=== PATIENT | female | born 1990 | race Caucasian/White ===

== ENCOUNTER 2018-02-25 17:15 | Emergency (ER) | payer OTHER ==
[~2018-02-25] VITALS: Ht 170.2 cm; Wt 105.0 kg
[~2018-02-25 17:15] MED LIST: CYCL5TAB PO; IBUP800T23 PO; MACR100C PO
[2018-02-25 17:36] VITALS: BP 177/80; PULSE 82; RESP 17; TEMP 98.7; O2SAT 100
[2018-02-25 18:50] LABS: AUTOMATED NEUTROPHIL # 6.6 TH/MM3 (1.8-7.7); BASOPHIL % 0.2 % (0.0-2.0); EOSINOPHIL # 0.1 TH/MM3 (0-0.4); EOSINOPHIL % 1.2 % (0.0-4.0); HEMATOCRIT 38.7 % (35.0-46.0); HEMOGLOBIN 13.7 GM/DL (11.6-15.3); LYMPH % 22.6 % (9.0-44.0); LYMPHOCYTE # 2.2 TH/MM3 (1.0-4.8); MEAN CELL VOLUME 88.9 FL (80.0-100.0); MEAN CORPUSCULAR HEMOGLOBIN 31.4 PG (27.0-34.0); MEAN CORPUSCULAR HGB CONC 35.3 % (32.0-36.0); MEAN PLATELET VOLUME 8.4 FL (7.0-11.0); MONOCYTE # 0.8 TH/MM3 (0-0.9); PLATELET COUNT 225 TH/MM3 (150-450); RED BLOOD COUNT 4.35 MIL/MM3 (4.00-5.30); RED CELL DISTRIBUTION WIDTH 13.1 % (11.6-17.2); WHITE BLOOD COUNT 9.7 TH/MM3 (4.0-11.0)
[2018-02-25 19:08] LABS: ALBUMIN 3.5 GM/DL (3.4-5.0); AST (GOT) 12 U/L (15-37); BICARBONATE 25.2 MEQ/L (21.0-32.0); BLOOD UREA NITROGEN 8 MG/DL (7-18); CALCIUM 9.2 MG/DL (8.5-10.1); CHLORIDE 106 MEQ/L (98-107); CREATININE 0.61 MG/DL (0.50-1.00); GLOMERULAR FILTRATION RATE 119 ML/MIN (>89); GLUCOSE,RANDOM 96 MG/DL (74-106); SODIUM (NA) 139 MEQ/L (136-145)
[2018-02-25 19:09] LABS: ALT (GPT) 31 U/L (10-53)
[2018-02-25 19:11] LABS: ALKALINE PHOSPHATASE 37 U/L (45-117); TOTAL BILIRUBIN ADULT 0.3 MG/DL (0.2-1.0)
[2018-02-25] MEDS ORDERED: SODIUM CHLOR 0.9% 1000 ML INJ 1,000 ML IV SCH (20:07)
--- NOTE | 2018-02-25 20:11 | PD ---
HPI Chief Complaint: Related Problem Time Seen by Provider: 20:02 Travel History International Travel<30 days: No Contact w/Intl Traveler<30days: No Traveled to known affect area: No History of Present Illness HPI This is a 27-year-old who is 10 weeks based on ultrasound 2 weeks ago confirming intrauterine . Her GOLF BALL MARKER is Dr. Gibbons. She presents for evaluation of nausea and vomiting. She reports over the past 2 days she has been vomiting approximately 4 times per day. She feels dehydrated. Reports a crampy suprapubic sensation that started today. Her OB/ MOTOR PATROL OPERATOR prescribed her Zofran yesterday which she has been using and it is helping with the nausea. She called her OBGYN today and was told to come here for IV fluids further evaluation. She denies any vaginal bleeding, vaginal discharge, dysuria, flank pain, fevers or chills. She has no other complaints at this time. PFSH Past Medical History Medical History: Denies Significant Hx Diminished Hearing: No Immunizations Current: Yes Tetanus Vaccination: < 5 Years Influenza Vaccination: Yes ?: : 3 Para: 2 Past Surgical History Surgical History: No Previous Surgery Social History Alcohol Use: No Tobacco Use: No Substance Use: No Allergies-Medications (Allergen,Severity, Reaction): Coded Allergies: No Known Allergies (Verified Allergy, Unknown, 02/25/18) doxycycline (Verified Allergy, Unknown, 02/25/18) Reported Meds & Prescriptions Reported Meds & Active Scripts Active Zofran (Ondansetron HCl) 4 Mg Tab 4 Mg PO Q12HR PRN Diclegis (Doxylamine-Pyridoxine) 10-10 Mg Tab 2 Tab PO HS Keflex (Cephalexin) 500 Mg Cap 500 Mg PO Q12H 7 Days Review of Systems Except as stated in HPI: all other systems reviewed are Neg Physical Exam Narrative GENERAL: Well-developed well-nourished female no acute distress SKIN: Warm and dry. HEAD: Atraumatic. Normocephalic. EYES: Pupils equal and round. No scleral icterus. No injection or drainage. ENT: No nasal bleeding or discharge. Mucous membranes pink and moist. NECK: Trachea midline. No JVD. CARDIOVASCULAR: Regular rate and rhythm. No murmur appreciated. RESPIRATORY: No accessory muscle use. Clear to auscultation. Breath sounds equal bilaterally. GASTROINTESTINAL: Abdomen soft, mild suprapubic tenderness without guarding. There is no left lower quadrant or right lower quadrant tenderness. There is no CVA tenderness. MUSCULOSKELETAL: No obvious deformities. No clubbing. No cyanosis. No edema. NEUROLOGICAL: Awake and alert. No obvious cranial nerve deficits. Motor grossly within normal limits. Normal speech. Data Data Last Documented VS Vital Signs Date Time Temp Pulse Resp B/P (MAP) Pulse Ox O2 Delivery O2 Flow Rate FiO2 02/25/18 17:36 98.7 82 17 177/80 (112) 100 Orders Orders Complete Blood Count With Diff (02/25/18 18:03) Comprehensive Metabolic Panel (02/25/18 18:03) Urinalysis - C+S If Indicated (02/25/18 20:07) Sodium Chlor 0.9% 1000 Ml Inj (Ns 1000 M (02/25/18 20:07) Ondansetron Odt (Zofran Odt) (02/25/18 20:15) Heart Tones (02/25/18 20:07) Ed Discharge Order (02/25/18 21:19) Labs Laboratory Tests Test 02/25/18 18:11 02/25/18 20:20 White Blood Count 9.7 TH/MM3 Red Blood Count 4.35 MIL/MM3 Hemoglobin 13.7 GM/DL Hematocrit 38.7 % Mean Corpuscular Volume 88.9 FL Mean Corpuscular Hemoglobin 31.4 PG Mean Corpuscular Hemoglobin Concent 35.3 % Red Cell Distribution Width 13.1 % Platelet Count 225 TH/MM3 Mean Platelet Volume 8.4 FL Neutrophils (%) (Auto) 68.0 % Lymphocytes (%) (Auto) 22.6 % Monocytes (%) (Auto) 8.0 % Eosinophils (%) (Auto) 1.2 % Basophils (%) (Auto) 0.2 % Neutrophils # (Auto) 6.6 TH/MM3 Lymphocytes # (Auto) 2.2 TH/MM3 Monocytes # (Auto) 0.8 TH/MM3 Eosinophils # (Auto) 0.1 TH/MM3 Basophils # (Auto) 0.0 TH/MM3 CBC Comment DIFF FINAL Differential Comment Blood Urea Nitrogen 8 MG/DL Creatinine 0.61 MG/DL Random Glucose 96 MG/DL Total Protein 7.0 GM/DL Albumin 3.5 GM/DL Calcium Level 9.2 MG/DL Alkaline Phosphatase 37 U/L Aspartate Amino Transf (AST/SGOT) 12 U/L Alanine Aminotransferase (ALT/SGPT) 31 U/L Total Bilirubin 0.3 MG/DL Sodium Level 139 MEQ/L Potassium Level 3.9 MEQ/L Chloride Level 106 MEQ/L Carbon Dioxide Level 25.2 MEQ/L Anion Gap 8 MEQ/L Estimat Glomerular Filtration Rate 119 ML/MIN Urine Color YELLOW Urine Turbidity HAZY Urine pH 6.5 Urine Specific [place] 1.016 Urine Protein TRACE mg/dL Urine Glucose (UA) NEG mg/dL Urine Ketones 80 mg/dL Urine Occult Blood NEG Urine Nitrite NEG Urine Bilirubin NEG Urine Urobilinogen 2.0 MG/DL Urine Leukocyte Esterase LARGE Urine WBC 5 /hpf Urine Squamous Epithelial Cells 32 /hpf Urine Bacteria OCC /hpf Urine Mucus FEW /lpf Microscopic Urinalysis Comment CULT NOT INDICATED MDM Medical Decision Making Medical Screen Exam Complete: Yes Emergency Medical Condition: Yes Medical Record Reviewed: Yes Differential Diagnosis Nausea and vomiting in , hyperemesis, dehydration, electrolyte abnormality, cystitis, miscarriage, ectopic Narrative Course Lab work, urinalysis was obtained. Bedside ultrasound performed by Dr. Cuadra reveals single intrauterine with heart tones 140. Patient was given IV fluids and she feels improved. Lab work is unremarkable. Urinalysis reveals leukocytes and bacteria so the patient will be treated for bacteriuria in with Keflex. She is stable for discharge. Diagnosis Primary Impression: Asymptomatic bacteriuria during Additional Impression: Nausea and vomiting during Additional Instructions: Medication as prescribed. Follow-up with coutierier. Return for any emergent medical conditions. Med/Other Pt SpecificInfo: Prescription(s) given Scripts Ondansetron (Zofran) 4 Mg Tab 4 MG PO Q12HR Y for NAUSEA OR VOMITING, #6 TAB 0 Refills Prov: Tenzin Gross MD 02/25/18 Doxylamine-Pyridoxine (Diclegis) 10-10 Mg Tab 2 TAB PO HS, #20 Prov: Tenzin Gross MD 02/25/18 Cephalexin (Keflex) 500 Mg Cap 500 MG PO Q12H for Infection for 7 Days, #14 CAP 0 Refills Prov: Tenzin Gross MD 02/25/18 Disposition: DISCHARGE HOME Condition: Stable Julio Shah February 25, 2018 20:11
[2018-02-25] MEDS ORDERED: ONDANSETRON ODT 4 MG TAB PO ONE (20:15)
[2018-02-25 20:46] LABS: BACTERIA, URINE OCC /hpf; BILIRUBIN, URINE NEG (NEG); BLOOD, URINE NEG (NEG); GLUCOSE,URINE NEG (NEG); KETONE, URINE 80 mg/dL (NEG); MUCUS URINE FEW /lpf (OCC); NITRITE,URINE NEG (NEG); PH, URINE 6.5 (5.0-8.5); SQUAMOUS EPITHELIAL CELL URINE 32 /hpf (0-5); URINE COLOR YELLOW (YELLW/STRAW); URINE LEUKOCYTE ESTERASE LARGE (NEG)
--- NOTE | 2018-02-25 20:56 | PD ---
Data Data Last Documented VS Vital Signs Date Time Temp Pulse Resp B/P (MAP) Pulse Ox O2 Delivery O2 Flow Rate FiO2 02/25/18 17:36 98.7 82 17 177/80 (112) 100 Orders Orders Complete Blood Count With Diff (02/25/18 18:03) Comprehensive Metabolic Panel (02/25/18 18:03) Urinalysis - C+S If Indicated (02/25/18 20:07) Sodium Chlor 0.9% 1000 Ml Inj (Ns 1000 M (02/25/18 20:07) Ondansetron Odt (Zofran Odt) (02/25/18 20:15) Heart Tones (02/25/18 20:07) Ed Discharge Order (02/25/18 21:19) Labs Laboratory Tests Test 02/25/18 18:11 02/25/18 20:20 White Blood Count 9.7 TH/MM3 Red Blood Count 4.35 MIL/MM3 Hemoglobin 13.7 GM/DL Hematocrit 38.7 % Mean Corpuscular Volume 88.9 FL Mean Corpuscular Hemoglobin 31.4 PG Mean Corpuscular Hemoglobin Concent 35.3 % Red Cell Distribution Width 13.1 % Platelet Count 225 TH/MM3 Mean Platelet Volume 8.4 FL Neutrophils (%) (Auto) 68.0 % Lymphocytes (%) (Auto) 22.6 % Monocytes (%) (Auto) 8.0 % Eosinophils (%) (Auto) 1.2 % Basophils (%) (Auto) 0.2 % Neutrophils # (Auto) 6.6 TH/MM3 Lymphocytes # (Auto) 2.2 TH/MM3 Monocytes # (Auto) 0.8 TH/MM3 Eosinophils # (Auto) 0.1 TH/MM3 Basophils # (Auto) 0.0 TH/MM3 CBC Comment DIFF FINAL Differential Comment Blood Urea Nitrogen 8 MG/DL Creatinine 0.61 MG/DL Random Glucose 96 MG/DL Total Protein 7.0 GM/DL Albumin 3.5 GM/DL Calcium Level 9.2 MG/DL Alkaline Phosphatase 37 U/L Aspartate Amino Transf (AST/SGOT) 12 U/L Alanine Aminotransferase (ALT/SGPT) 31 U/L Total Bilirubin 0.3 MG/DL Sodium Level 139 MEQ/L Potassium Level 3.9 MEQ/L Chloride Level 106 MEQ/L Carbon Dioxide Level 25.2 MEQ/L Anion Gap 8 MEQ/L Estimat Glomerular Filtration Rate 119 ML/MIN Urine Color YELLOW Urine Turbidity HAZY Urine pH 6.5 Urine Specific [place] 1.016 Urine Protein TRACE mg/dL Urine Glucose (UA) NEG mg/dL Urine Ketones 80 mg/dL Urine Occult Blood NEG Urine Nitrite NEG Urine Bilirubin NEG Urine Urobilinogen 2.0 MG/DL Urine Leukocyte Esterase LARGE Urine WBC 5 /hpf Urine Squamous Epithelial Cells 32 /hpf Urine Bacteria OCC /hpf Urine Mucus FEW /lpf Microscopic Urinalysis Comment CULT NOT INDICATED MDM Medical Record Reviewed: Yes Supervised Visit with PRIMO: Yes Narrative Course I, Dr. Gross, have reviewed the advance practice practitioner's documentation and am in agreement, met with the patient face to face, made the diagnosis, and the medical decision making was done by me. *My assessment and Findings: Transabdominal ultrasound bedside reveals a heart rate approximately 140-160. Possibly some traumatic bacteriuria. Scripts as below. Scripts Ondansetron (Zofran) 4 Mg Tab 4 MG PO Q12HR Y for NAUSEA OR VOMITING, #6 TAB 0 Refills Prov: Tenzin Gross MD 02/25/18 Doxylamine-Pyridoxine (Diclegis) 10-10 Mg Tab 2 TAB PO HS, #20 Prov: Tenzin Gross MD 02/25/18 Cephalexin (Keflex) 500 Mg Cap 500 MG PO Q12H for Infection for 7 Days, #14 CAP 0 Refills Prov: Tenzin Gross MD 02/25/18 Tenzin Gross MD February 25, 2018 20:56
--- NOTE | 2018-02-25 21:16 | PD ---
Data Data Last Documented VS Vital Signs Date Time Temp Pulse Resp B/P (MAP) Pulse Ox O2 Delivery O2 Flow Rate FiO2 02/25/18 17:36 98.7 82 17 177/80 (112) 100 Orders Orders Complete Blood Count With Diff (02/25/18 18:03) Comprehensive Metabolic Panel (02/25/18 18:03) Urinalysis - C+S If Indicated (02/25/18 20:07) Sodium Chlor 0.9% 1000 Ml Inj (Ns 1000 M (02/25/18 20:07) Ondansetron Odt (Zofran Odt) (02/25/18 20:15) Heart Tones (02/25/18 20:07) Labs Laboratory Tests Test 02/25/18 18:11 02/25/18 20:20 White Blood Count 9.7 TH/MM3 Red Blood Count 4.35 MIL/MM3 Hemoglobin 13.7 GM/DL Hematocrit 38.7 % Mean Corpuscular Volume 88.9 FL Mean Corpuscular Hemoglobin 31.4 PG Mean Corpuscular Hemoglobin Concent 35.3 % Red Cell Distribution Width 13.1 % Platelet Count 225 TH/MM3 Mean Platelet Volume 8.4 FL Neutrophils (%) (Auto) 68.0 % Lymphocytes (%) (Auto) 22.6 % Monocytes (%) (Auto) 8.0 % Eosinophils (%) (Auto) 1.2 % Basophils (%) (Auto) 0.2 % Neutrophils # (Auto) 6.6 TH/MM3 Lymphocytes # (Auto) 2.2 TH/MM3 Monocytes # (Auto) 0.8 TH/MM3 Eosinophils # (Auto) 0.1 TH/MM3 Basophils # (Auto) 0.0 TH/MM3 CBC Comment DIFF FINAL Differential Comment Blood Urea Nitrogen 8 MG/DL Creatinine 0.61 MG/DL Random Glucose 96 MG/DL Total Protein 7.0 GM/DL Albumin 3.5 GM/DL Calcium Level 9.2 MG/DL Alkaline Phosphatase 37 U/L Aspartate Amino Transf (AST/SGOT) 12 U/L Alanine Aminotransferase (ALT/SGPT) 31 U/L Total Bilirubin 0.3 MG/DL Sodium Level 139 MEQ/L Potassium Level 3.9 MEQ/L Chloride Level 106 MEQ/L Carbon Dioxide Level 25.2 MEQ/L Anion Gap 8 MEQ/L Estimat Glomerular Filtration Rate 119 ML/MIN Urine Color YELLOW Urine Turbidity HAZY Urine pH 6.5 Urine Specific [place] 1.016 Urine Protein TRACE mg/dL Urine Glucose (UA) NEG mg/dL Urine Ketones 80 mg/dL Urine Occult Blood NEG Urine Nitrite NEG Urine Bilirubin NEG Urine Urobilinogen 2.0 MG/DL Urine Leukocyte Esterase LARGE Urine WBC 5 /hpf Urine Squamous Epithelial Cells 32 /hpf Urine Bacteria OCC /hpf Urine Mucus FEW /lpf Microscopic Urinalysis Comment CULT NOT INDICATED MDM Medical Record Reviewed: Yes Supervised Visit with PRIMO: Yes Narrative Course I, Dr. Gross, have reviewed the advance practice practitioner's documentation and am in agreement, met with the patient face to face, made the diagnosis, and the medical decision making was done by me. *My assessment and Findings: Bedside US reveals intrauterine heart rate of approximately 140-160. Patient is here for nausea and vomiting. She received IV fluids here. We can see from the workup that she has leukocyte esterase and squamous cells. This may reflect that asymptomatic bacteriuria. Short course of antibiotics reasonable. No UA RBCs or vaginal bleeding. Scripts No Active Prescriptions or Reported Meds Tenzin Gross MD February 25, 2018 21:16
[2018-02-25] MEDS ORDERED: ZOFR4TAB PO (21:26)
[2018-02-25] MEDS ORDERED: DOXY10TA PO (21:26)
[2018-02-25] MEDS ORDERED: CEPH-460 PO (21:26)
== END 2018-02-25 21:50 | disposition home or self-care (01) ==
LOC: NEPD 17:15
DX: O26.891 Other specified pregnancy related conditions, first trimester (principal); O21.9 Vomiting of pregnancy, unspecified; R82.71 Bacteriuria; Z3A.10 10 weeks gestation of pregnancy
CPT/HCPCS: 80053; 81001; 85025; 96360; 99284; J7030

== ENCOUNTER 2018-09-18 18:11 | Inpatient (IN) ==
[2018-09-18 19:31] LABS: Baso % (Auto) 0.3 % (0.0-2.0); Eos % (Auto) 0.6 % (0.0-4.0); Hematocrit 36.7 % (35.0-46.0); Hemoglobin 12.7 gm/dL (11.6-15.3); Lymph % (Auto) 23.6 % (9.0-44.0); Mean Corpuscular HGB Conc 34.6 % (32.0-36.0); Mean Corpuscular Hemoglobin 30.7 pg (27.0-34.0); Mean Corpuscular Volume 88.7 fL (80.0-100.0); Mean Platelet Volume 9.9 fL (7.0-11.0); Mono # (Auto) 0.5 th/mm3 (0.0-0.9); Mono % (Auto) 6.1 % (0.0-8.0); Neut # (Auto) 5.8 th/mm3 (1.8-7.7); Neut % (Auto) 69.4 % (16.0-70.0); Platelet Count 170 th/mm3 (150-450); Red Blood Count 4.13 mil/mm3 (4.00-5.30); Red Cell Distribution Width 12.8 % (11.6-17.2); White Blood Count 8.3 th/mm3 (4.0-11.0)
[2018-09-18] MEDS ORDERED: Sod Chloride 0.9% Inj 1,000 ML IV.CONT PRN (19:52)
[2018-09-18] MEDS ORDERED: fentaNYL Citrate Inj 100 MCG/2 ML Ampul IV.PUSH PRN (19:52)
[2018-09-18] MEDS ORDERED: Sodium Chlor 0.9% Inj 500 ML IV.SIG PRN (19:52)
[2018-09-18] MEDS ORDERED: Naloxone Inj 0.4 MG/ML Vial IV.PUSH PRN (19:52)
[2018-09-18 19:55] LABS: Amphetamine Urine With Conf Neg (Neg); Benzodiazepine Urine With Conf Neg (Neg); Cocaine Urine With Conf Neg (Neg); Opiates Urine With Conf Neg (Neg)
[2018-09-18 19:59] LABS: Bacteria,Urine Moderate /hpf; Bilirubin,Urine Negative (Negative); Clarity,Urine Cloudy (Clear); Color,Urine Yellow (Yellw/Straw); Glucose,Urine (UA) Negative (Negative); Hyaline Casts,Urine 2 /lpf (0-3); Leukocyte Esterase,Urine Large (Negative); Mucus,Urine Many /lpf (Occasional); Nitrite,Urine Negative (Negative); Specific Gravity,Urine 1.009 (1.002-1.035); Squamous Epithelial Cell,Urine 23 /hpf (0-5)
[2018-09-18] MEDS ORDERED: Citric Acid/Sodium Citrate Liq 30 ML UDC PO SCH (20:00)
[2018-09-18 20:02] LABS: Cannabinoid Urine With Conf Neg (Neg)
[2018-09-19] MEDS: fentaNYL Citrate Inj 100 MCG/2 ML Ampul IV.PUSH PRN ×2 (05:14→06:37)
[2018-09-19] MEDS ORDERED: fentaNYL 2MCG-Bupiv 0.125% Epi 150 ML EPIDURAL ONE (07:08)
[2018-09-19] MEDS ORDERED: Oxytocin 30 Units/500ml Premix 30 UNITS/500 ML BAG ONE (07:08)
[2018-09-19] MEDS ORDERED: fentaNYL Citrate Inj 100 MCG/2 ML Ampul EPIDURAL ONE (08:03)
[2018-09-19] MEDS ORDERED: fentaNYL 2MCG-Bupiv 0.125% Epi 150 ML EPIDURAL PRN (08:03)
[2018-09-19] MEDS ORDERED: Benzocaine 20% Top Spray 60 ML Can TOPICAL PRN (08:58)
[2018-09-19] MEDS ORDERED: Oxytocin 30 Units/500ml Premix 30 UNITS/500 ML BAG IV.CONT PRN (08:58)
[2018-09-19] MEDS ORDERED: Acetaminophen 325 MG Tablet PO PRN (08:58)
[2018-09-19] MEDS ORDERED: Naloxone Inj 0.4 MG/ML Vial IV.PUSH PRN (08:58)
[2018-09-19] MEDS ORDERED: Witch Hazel 50%/Glyderin 12.5% 40 Pad Jar RECTAL PRN (08:58)
[2018-09-19] MEDS ORDERED: Bisacodyl 10 MG Supp RECTAL PRN (08:58)
--- NOTE | 2018-09-19 08:58 | P.OBDELI ---
Weeks Gestation: 39 Patient Started Active Labor: Yes Active Labor Start Date: 09/19/18 Active Labor Start Time: 06:45 Medical Induction of Labor: Yes Medical Induction Start Date: 09/18/18 Medical Induction Start Time: 19:00 Artificial Rupture of Membrane: No Anesthesia: Epidural Episiotomy: none Vaginal Delivery: Normal Presentation: Occiput anterior (MERISSA) Nuchal Cord: None Delayed Cord Clamping (45 sec): Yes Placenta: Spontaneous delivery Laceration: 1 deg Repair: Chromic interrupted Estimated blood loss (mL): 250 : Female ( 8/8)
--- NOTE | 2018-09-19 09:03 | MH ---
cc: Francine Gibbons MD DATE OF ADMISSION: 09/18/2018 HISTORY OF PRESENT ILLNESS: She is 27 years old, 3, para 2, intrauterine at 39+ weeks, admitted for induction of labor for history of macrosomia, suspect large for gestational age. care has been with [place] [employer] SUPERVISOR, uncomplicated. Blood type is A positive. Genetic screening was normal. GCT was normal. Group B strep was negative. Placenta is posterior on ultrasound. PAST OBSTETRICAL HISTORY: Significant for 2 vaginal deliveries, last baby was 9 pounds 2 ounces. PAST GYNECOLOGIC HISTORY: Unremarkable. She had a normal Pap smear in 11/2017. PAST MEDICAL HISTORY: She denies hypertension, diabetes, or asthma. PAST SURGICAL HISTORY: She denies. SOCIAL HISTORY: She denies. MEDICATIONS: She takes vitamins. IMMUNIZATIONS: She did get a flu shot this year. ALLERGIES: SHE HAS AN ALLERGY TO DOXYCYCLINE. PHYSICAL EXAMINATION: VITAL SIGNS: Stable. She is afebrile. Blood pressure is 116/60. She is 240 pounds HEAD, HEART, CHEST, LUNG: Exams are within normal limits. ABDOMEN: Soft, nontender, gravid. PELVIC: Vaginal exam in the clinic was 1 cm dilated, 50% effaced, -1 station. EXTREMITIES: No edema, cyanosis, or clubbing. ASSESSMENT AND PLAN: She is 27 years old, 3, para 2, intrauterine at 39+ weeks with history of macrosomia, large for gestational age. Plan is to admit for Cervidil cervical ripening, Pitocin augmentation as needed. Anticipate vaginal delivery. Labor analgesia as needed. MD NATE Herman/[place] , 08:25 AM , 08:30 AM
[2018-09-19] MEDS ORDERED: Diphtheria/Tetanus/Pertussis Vaccine Inj 0.5 ML Syringe IM ONE (16:00)
[2018-09-19] MEDS ORDERED: Measles/Mumps/Rubella Vaccine Inj 0.5 ML Vial SQ ONE (16:00)
[2018-09-19] MEDS: Senna/Docusate Sodium 8.6/50 MG Tablet PO SCH ×2 (17:28→20:56)
[2018-09-19] MEDS: Prenatal Vit/Ca/Iron/Folic Acid Tablet PO SCH (17:28)
[2018-09-19] MEDS ORDERED: Zolpidem Tartrate 5 MG Tablet PO PRN (21:00)
[2018-09-20 08:38] VITALS: TEMP 98.2
--- NOTE | 2018-09-20 08:51 | P.PNOB ---
Subjective Post day: 1 Interval history: s/p uncomplicated healthy girl;doing well, pain well controlled, minimal lochia; if infant discharged desires d/c to home today Objective Vital Signs/I&O: Vital Signs 09/19/18 08:55 09/19/18 09:07 09/19/18 09:16 Temperature 98.6 F Pulse Rate 90 79 Respiratory Rate 19 18 Blood Pressure 118/71 118/67 09/19/18 09:25 09/19/18 09:31 09/19/18 09:40 Temperature Pulse Rate 79 75 Respiratory Rate 17 18 Blood Pressure 126/70 116/56 L 09/19/18 10:10 09/19/18 10:16 09/19/18 10:31 Temperature Pulse Rate 81 87 79 Respiratory Rate 17 Blood Pressure 118/85 131/72 126/66 09/19/18 10:32 09/19/18 10:55 09/19/18 20:00 Temperature 98.7 F 98.4 F Pulse Rate 77 79 Respiratory Rate 18 18 18 Blood Pressure 117/70 120/78 09/20/18 08:20 Temperature 98.2 F Pulse Rate 71 Respiratory Rate 18 Blood Pressure 126/79 Result Diagrams: 09/18/18 18:35 Objective Remarks: GENERAL: Well-nourished, well-developed patient. CARDIOVASCULAR: Regular rate and rhythm without murmurs, gallops, or rubs. RESPIRATORY: Breath sounds equal bilaterally. No accessory muscle use. ABDOMEN/GI: Abdomen soft, non-tender. Fundus: Firm, non-tender at umbilicus. GENITOURINARY: Light bleeding. EXTREMITIES: No cyanosis or edema, non-tender, without signs of DVT. Medications and IVs: Active Medications Acetaminophen (Tylenol) 650 mg PO Q4H PRN PRN Reason: PAIN SCALE 1 TO 2 Al Hydroxide/Mg Hydroxide (Milk Of Magnesia Liq) 30 ml PO Q12H PRN PRN Reason: Mild Constipation Benzocaine (Americaine 20% [place]) 1 spray TOPICAL Q4H PRN PRN Reason: For Perineum Discomfort Last Admin: 09/19/18 20:56 Dose: 1 spray Bisacodyl (Dulcolax Supp) 10 mg RECTAL DAILY PRN PRN Reason: SEVERE CONSITIPATION Citric Acid/Sodium Citrate (Sodium Citrate/Citric Acid Liq) 30 ml PO [employer]FRAME [employer]OWERPLANT TECHNICIAN [facility] Stop: 09/22/18 19:59 Fentanyl Citrate (Fentanyl Inj) 50 mcg IV.PUSH Q1H PRN PRN Reason: Pain Scale 3 - 5 Fentanyl Citrate (Fentanyl Inj) 100 mcg IV.PUSH Q1H PRN PRN Reason: PAIN SCALE 6 TO 10 Last Admin: 09/19/18 06:37 Dose: 100 mcg Lactated Ringer's (Lr 1000 Ml Inj) 1,000 mls @ 125 mls/hr IV.CONT .Q8H [facility] Last Admin: 09/19/18 22:37 Dose: Not Given Lactated Ringer's (Lr 1000 Ml Inj) 1,000 mls @ 3,000 mls/hr IV.SIG UNSCH PRN PRN Reason: compromise or epidural Sodium Chloride (Ns Inj) 500 mls @ 1,000 mls/hr IV.SIG UNSCH PRN PRN Reason: SEE LABEL COMMENTS Sodium Chloride (Ns Inj) 1,000 mls @ 100 mls/hr IV.CONT .Q10H PRN PRN Reason: SEE LABEL COMMENTS Fentanyl/Bupivacaine/Sodium Chlor (Fentanyl 2 Mcg-Bupiv 0.125% Epi) 150 mls @ 12 mls/hr EPIDURAL PRN PRN PRN Reason: for Labor Pain Last Admin: 09/19/18 09:15 Dose: 12 mls/hr Oxytocin (Pitocin 30 Units/Ns 500 Ml Premix) 30 units in 500 mls @ 100 mls/hr IV.CONT UNSCH PRN PRN Reason: Heavy bleeding Ibuprofen (Motrin) 800 mg PO Q8H PRN PRN Reason: For Cramping Last Admin: 09/19/18 22:30 Dose: 800 mg Lactulose (Lactulose Liq) 30 ml PO DAILY PRN PRN Reason: SEVERE CONSITIPATION Lidocaine HCl (Xylocaine 1% Inj) 0.1 ml I-DERMAL PRN PRN PRN Reason: For IV start Stop: 09/21/18 19:51 Naloxone HCl (Narcan Inj) 0.1 mg IV.PUSH Q2M PRN PRN Reason: for opiate reversal Ondansetron HCl (Zofran Inj) 4 mg IV.PUSH Q6H PRN PRN Reason: NAUSEA OR VOMITING Ondansetron HCl (Zofran Odt) 4 mg PO Q6H PRN PRN Reason: NAUSEA OR VOMITING Vit/Calcium/Iron/Folic Ac (Stuartnatal Plus 3) 1 tab PO DAILY [facility] Last Admin: 09/19/18 17:28 Dose: Not Given Senna/Docusate Sodium (Geovanna-Colace) 1 tab PO BID [facility] Last Admin: 09/19/18 20:56 Dose: 1 tab Sennosides (Senokot) 17.2 mg PO Q12H PRN PRN Reason: Moderate Constipation Sodium Chloride (Ns Flush) 2 ml IV.FLUSH BID [facility] Last Admin: 09/19/18 22:25 Dose: 2 ml Sodium Chloride (Ns Flush) 2 ml IV.FLUSH PRN PRN PRN Reason: FLUSH AFTER USING IV ACCESS Witch Sumi/Glycerin (Tucks Pads) 1 applicatio RECTAL QID PRN PRN Reason: HEMORRHOIDS Last Admin: 09/19/18 20:56 Dose: 1 applicatio Zolpidem Tartrate (Ambien) 5 mg PO HS PRN PRN Reason: SLEEP Assessment and Plan - Plan PPD#1 - routine supportive care, meeting all criteria, if d/c'd ok for discharge today, otherwise plan for tmrw Discharge Planning: routine
[2018-09-20] MEDS: Senna/Docusate Sodium 8.6/50 MG Tablet PO SCH ×2 (10:57→21:05)
[2018-09-20] MEDS: Prenatal Vit/Ca/Iron/Folic Acid Tablet PO SCH (10:57)
[2018-09-21] MEDS: Senna/Docusate Sodium 8.6/50 MG Tablet PO SCH (08:14)
[2018-09-21] MEDS: Prenatal Vit/Ca/Iron/Folic Acid Tablet PO SCH (08:14)
[2018-09-21 08:48] VITALS: BP 132/84; PULSE 68; RESP 20
== END 2018-09-21 10:36 | disposition home or self-care (01) ==
LOC: H2E 18:11 → H1EA 09-19 10:46
PROVIDERS: ADMIT Obstetrics & Gynecology; ATTEND Obstetrics & Gynecology